=== PATIENT | male | born 1980 | race Caucasian/White ===

== ENCOUNTER 2017-05-07 18:41 | Emergency (ER) | payer SELFPAY ==
[~2017-05-07] VITALS: Ht 162.6 cm; Wt 86.0 kg
[2017-05-07 19:56] VITALS: BP 158/113
[2017-05-07] MEDS ORDERED: LIDOCAINE HCL 1% 20ML VIAL (Pyxis) INJ MC ONE (21:30)
[2017-05-07] MEDS: BACITRACIN ZINC OINT UDPKT TOP ONE (22:05)
[2017-05-07] MEDS: TETANUS, DIPHTHERIA, PERTUSSIS VAC/PF 0.5ML (>7YR OLD) IM ONE (22:55)
== END 2017-05-07 23:04 | disposition home or self-care (01) ==
LOC: ER 18:41
DX: S01.81XA Laceration without foreign body of other part of head, initial encounter (principal); W45.8XXA Other foreign body or object entering through skin, initial encounter; Y93.55 Activity, bike riding; Y92.89 Other specified places as the place of occurrence of the external cause; Z23 Encounter for immunization
CPT/HCPCS: 12015; 90471; 90715; 99284; J3490; Z7610